=== PATIENT | female | born 1935 | race Caucasian/White ===

== ENCOUNTER 2017-01-08 22:37 | Inpatient (IN) | payer OTHER, MEDICARE ==
[~2017-01-08] VITALS: Ht 160 cm; Wt 86.2 kg
[~2017-01-08 22:37] MED LIST: AZIL80TA PO; LEVO50TA77 PO; LISI-600 PO; METO-442 PO; OMEP20CA10 PO; POTA10TA80 PO; TRIA1CAP53 PO
[2017-01-08 22:42] VITALS: BP_SYST 160
--- NOTE | 2017-01-08 22:45 | NUR ---
Pt placed to ER waiting room in stable condition.
--- NOTE | 2017-01-08 23:05 | NUR ---
Patient to ER bed 1 to gown for evaluation. Side rails up. Report given to Faith BURNS.
--- NOTE | 2017-01-08 23:15 | NUR ---
Pt A&OX4, family at bedside. Pt complaining of left and right upper abdominal pain that began today, pain is 8/10 sharp and constant. Pt states she has had gas and diarrhea for past 3-4 days with some nausea. Denies any vomiting/SOB. No other signs of acute distress noted. Will continue to monitor.
[2017-01-08 23:48] LABS: BILIRUBIN,URINE NEGATIVE (NEGATIVE); BLOOD, URINE 1+ (NEGATIVE); CLARITY/URINE CLEAR (CLEAR); COLOR,URINE YELLOW (YELLOW); GLUCOSE,URINE NEGATIVE (NEGATIVE); KETONES,URINE NEGATIVE (NEGATIVE); LEUKOCYTE ESTERASE ,URINE NEGATIVE (NEGATIVE); NITRITE, URINE NEGATIVE (NEGATIVE); PH,URINE 5.5 (5.0-8.0); PROTEIN URINE NEGATIVE (NEGATIVE); UROBILINOGEN,URINE 0.2 (0.2-1.0)
[2017-01-08 23:50] LABS: ANION GAP 8 (5-15); CHLORIDE 101 mmol/L (98-107); CREATININE 0.98 mg/dL (0.55-1.30); GLUCOSE 121 mg/dL (70-99); POTASSIUM 4.1 mmol/L (3.5-5.1); SODIUM SERUM 134 mmol/L (136-145); UREA NITROGEN, BLOOD 33 mg/dL (8-21)
[2017-01-08 23:54] LABS: BASOPHILS % (AUTO) 0.2 % (0.0-2.0); EOSINOPHILS # (AUTO) 0.1 K/uL (0.0-0.4); EOSINOPHILS % (AUTO) 0.4 % (0.0-4.0); HEMATOCRIT 36.9 % (36-48); HEMOGLOBIN 12.6 g/dL (12.0-16.0); LYMPHOCYTES # (AUTO) 0.8 K/uL (1.0-5.5); LYMPHOCYTES % (AUTO) 6.2 % (20.5-51.5); MEAN CORPUSCULAR HEMOGLOBIN 32 pg (27-31); MEAN CORPUSCULAR HGB CONC 34 % (32-36); MEAN CORPUSCULAR VOLUME 95 fL (79.0-98.0); MONOCYTES # (AUTO) 0.8 K/uL (0.0-1.0); MONOCYTES % (AUTO) 6.3 % (1.7-9.3); NEUTROPHILS # (AUTO) 11.7 K/uL (1.8-7.7); NEUTROPHILS % (AUTO) 86.9 % (40.0-70.0); PLATELET COUNT (AUTO) 284 K/uL (130-430); RED CELL DISTRIBUTION WIDTH 12.3 % (9.0-15.0); WHITE BLOOD COUNT (AUTO) 13.4 K/uL (4.8-10.8)
[2017-01-08 23:55] LABS: ALANINE AMINOTRANSFERASE 22 U/L (12-78); ALBUMIN 3.8 g/dL (3.4-4.8); ASPARTATE AMINOTRANSFERASE 17 U/L (10-37); LIPASE 77 U/L (73-393); TOTAL BILIRUBIN 0.5 mg/dL (0.0-1.0); TOTAL PROTEIN, SERUM 7.7 g/dL (6.4-8.3)
[2017-01-09 00:26] LABS: BACTERIA,URINE FEW /HPF (None Seen); RBC,URINE 0-3 /HPF (0-3); WBC,URINE 0-3 /HPF (0-3)
[2017-01-09 00:27] LABS: MUCUS,URINE None Seen /LPF (None Seen)
[2017-01-09] MEDS ORDERED: NACL 0.9% 1,000 ML IV ONE (00:28)
[2017-01-09] MEDS ORDERED: DIPHENHYDRAMINE INJ 50 MG/ML VIAL IVP ONE (00:30)
[2017-01-09] MEDS ORDERED: HYDROmorphone 1 MG INJ. 1 MG/ML AMPUL IVP ONE (00:30)
--- NOTE | 2017-01-09 00:30 | NUR ---
ER MD Ibarra at bedside examining patient.
--- NOTE | 2017-01-09 02:16 | NUR ---
Medication reconciliation completed with information provided by - verbal from patient. Any prior medication reconciliation on file was reviewed and corrected.
[2017-01-09] MEDS ORDERED: ONDANSETRON HCL 4 MG/2 ML VIAL IVP PRN ×2 (02:30→10:15)
[2017-01-09] MEDS ORDERED: HYDROmorphone 1 MG INJ. 1 MG/ML AMPUL IVP PRN ×3 (02:30→10:15)
--- NOTE | 2017-01-09 03:09 | NUR ---
ADMISSION NOTE Received patient from ER via gurney. Patient admitted with diagnosis of A. Appendicitis. Patient is awake, alert, oriented X 4. Patient oriented to hospital room, call light, toileting, pain management and safety-teach back done. Patient informed that Roberto will be his nurse and that their room number is 122B. Personal belongings checked and Belongings List documented. Call light within reach.
--- NOTE | 2017-01-09 03:09 | NUR ---
Patient will be admitted to care of Dr. Renner. Admitted to Medical Surgical unit. Will go to room 122 A. Belongings list completed. Summary report printed. Report will be given at bedside.
[2017-01-09 03:10] VITALS: BP_SYST 120
--- NOTE | 2017-01-09 03:32 | NUR ---
Surgery Consultation Paged Reason for consultation: Acute Appendicitis Was consult called: Yes Person who was notified: Inez Consulting Physician: Dr Mclain Studio Coordinator Specialty: Interior Painter Ordered By: Dr Renner
[2017-01-09] MEDS ORDERED: PIPERACILLIN/TAZOBACTAM 3.375 GM/VIAL (ZOSYN) IV ONE (04:22)
[2017-01-09] MEDS: PIPERACILLIN/TAZO 3.375/DEX-IS 50 ML IV SCH ×3 (05:27→19:28)
[2017-01-09] MEDS: D5NS 1,000 ML IV SCH ×2 (05:28→16:54)
--- NOTE | 2017-01-09 06:52 | NUR ---
Final Rounds Patient is resting in bed at this time with at bedside. No s/s of pain or any distress noted. Educated patient for possible appendectomy today and verbalized understanding. All needs met and anticipated by staff. Bed in low position with call light in reach, will endorse.
--- NOTE | 2017-01-09 08:00 | NUR ---
OPENING NOTE/DR LUA AT BEDSIDE PT PRESENTED WITH ACUTE APPENDICITIS AND IS SCHEDULED FOR A LAP VS OPEN APPENDECTOMY TODAY AT 0930. . VS STABLE ON ROOM AIR, PAIN AT LLQ 12/12. LUNG SOUNDS CLEAR, BOWEL SOUNDS MILDLY HYPOACTIVE IN ALL FOUR QUAD[address]S. DR. LUA EXPLAINED RISKS AND BENEFITS OF SX TO PT AT BEDSIDE AND ANSWERED ALL OF HER QUESTIONS REGARDING THE PROCEDURE. FAMILY AT BEDSIDE, EDUCATION PROVIDED ON PRE-OP PROCEDURES Addendum: 01/09/17 at 1026 by Ramon Busch RN MISTAKEN ENTRY: PAIN AT RLQ, NOT LLQ
[2017-01-09] MEDS ORDERED: HYDROmorphone 1 MG INJ. 1 MG/ML AMPUL IM PRN (08:15)
[2017-01-09] MEDS ORDERED: ROCURONIUM BROMIDE 10 MG/ML (ZEMURON) IV ONE (09:09)
[2017-01-09] MEDS ORDERED: SEVOFLURANE 15 MIN GAS INH ONE (09:09)
[2017-01-09] MEDS ORDERED: GLYCOPYRROLATE 0.2 MG/ML VIAL IJ ONE (09:09)
[2017-01-09] MEDS ORDERED: ONDANSETRON HCL 4 MG/2 ML VIAL IVP ONE (09:09)
[2017-01-09] MEDS ORDERED: NEOSTIGMINE METHYLSULFATE 1 MG/ML, 10 ML VIAL IVP ONE (09:09)
[2017-01-09] MEDS ORDERED: fentaNYL CITRATE/PF 100 MCG/2 ML AMP IVP ONE (09:09)
[2017-01-09] MEDS ORDERED: MIDAZOLAM HCL 5 MG/5 ML VIAL IVP ONE (09:09)
[2017-01-09] MEDS ORDERED: NS 1000 ML BAG IV ONE (09:09)
[2017-01-09 09:18] LABS: PROTHROMBIN TIME 10.8 SECS (9.5-12.5)
--- NOTE | 2017-01-09 09:30 | NUR ---
PT TRANSPORTED TO S ALL CONSENTS SIGNED, PT WITH FAMILY
[2017-01-09] MEDS ORDERED: LR 1,000 ML IV SCH (10:14)
[2017-01-09] MEDS ORDERED: MEPERIDINE HCL/PF 25 MG/ML DISP.SYRIN IVP PRN ×2 (10:15)
[2017-01-09 11:45] VITALS: BP_SYST 115
--- NOTE | 2017-01-09 11:45 | NUR ---
PT RETURNED TO SX (Room 123-A) PT RETURNED TO ROOM ALERT BUT DROWSY, VS STABLE AND SPO2 97% AT 3L NC. I PLAN TO TITRATE THE O2 DOWN TOLERATED SHE RECOVERS. VS: 97.8, 115/57, 71 HR, 15RR, 97% 3L NC, PAIN 0/10 FAMILY AT BEDSIDE AND EDUCATED ON POST-OP PLAN OF CARE
--- NOTE | 2017-01-09 13:30 | NUR ---
ROUNDS PT RESTING IN BED AND APPEARS TO SLEEPING. VS STABLE WITH NO S/S OF DISTRESS.
--- NOTE | 2017-01-09 15:08 | NUR ---
ROUNDS PT IS RESTING IN BED, TALKING WITH HER FAMILY MEMBERS WHO ARE AT BEDSIDE. PT SPO2 WAS 98% ON 2L O2, SO I LOWERED IT TO 1L AND SHE REMAINED AT 94%.
--- NOTE | 2017-01-09 15:40 | NUR ---
PT EDUCATION PT EDUCATED ON USE OF INCENTIVE SPIROMETER, DISPLAYED ABILITY TO PROPERLY USE INSTRUMENT. IS AT BEDSIDE.
[2017-01-09 16:58] VITALS: BP_SYST 109
--- NOTE | 2017-01-09 17:00 | NUR ---
ROUNDS PT SITTING UP IN BED, TALKING WITH HER WHO IS AT BEDSIDE. I ASSISTED HER TO THE BATHROOM AND SHE WAS RELATIVELY STEADY WITH NO COMPLAINTS OF PAIN OR SOB. I HELPED HER RETURN TO BED AND REPOSITIONED HER FOR COMFORT.
--- NOTE | 2017-01-09 19:00 | NUR ---
CLOSING NOTE PT IS SITTING UP IN BED WATCHING TV WITH NO COMPLAINT OF DISCOMFORT. PT IS STABLE ON ROOM AIR, A/O X 4, AND IS IN GOOD SPIRITS. SHE IS EXCITED TO GO HOME TOMORROW THOUGH I EDUCATED HER ON THE IMPORTANCE OF WAITING UNTIL BOTH DR. GASPAR WELL DR. LUA CLEAR HER FOR DC.
[2017-01-09 20:59] VITALS: BP_SYST 102
--- NOTE | 2017-01-09 21:04 | NUR ---
Initial note A/O x 3, no SOB, no chest pain, c/o mild discomfort at ABD (post-op/surgical pain). Skin warm to touch, 3 dressings at abd, no oozing. Clear lung sounds and active bowel sounds. Patient is able to inhale 500-750 ml via incentive spirometer (IS). Educated patient to practice IS 10 times/hr via IS to prevent lung closure. Also instructed patient to practice deep breathing. SCD in place. call light within reach, bed at lowest position, bed alarm on, will continue to monitor patient.
--- NOTE | 2017-01-09 21:30 | NUR ---
IV reinsertion. IV at R FA infiltrated. Started a new IV at L hand #24 x 5 attempts. Resumed IVF, DC old IV, IV catheter intact. Patient tolerated well.
--- NOTE | 2017-01-09 22:22 | NUR ---
Rounds Watching TV in bed. No SOB, no chest pain, denied pain. Reminded patient to practice deep breathing. Call light within reach, bed at lowest position, bed alarm on, will continue to monitor patient.
[2017-01-09 23:22] VITALS: BP_SYST 102
--- NOTE | 2017-01-10 00:26 | NUR ---
Rounds Resting/sleeping in bed. Easy to awake. No SOB, no chest pain, denied pain. IVF ongoing. Call light within reach, bed at lowest position, bed alarm on, will continue to monitor patient.
[2017-01-10] MEDS: PIPERACILLIN/TAZO 3.375/DEX-IS 50 ML IV SCH ×5 (01:04→23:58)
--- NOTE | 2017-01-10 02:09 | NUR ---
Rounds Sleeping in bed, no SOB, no chest pain, no grimacing. Call light within reach, bed at lowest position, bed alarm on, will continue to monitor patient.
[2017-01-10 03:55] VITALS: BP_SYST 109
--- NOTE | 2017-01-10 04:02 | NUR ---
Rounds Patient is awake and asking how to use incentive spirometer (IS). Re-educated patient how to use and patient is able to inhale about 500-750 ml. Then patient wanted to sleep. Call light within reach, bed at lowest position, bed alarm on, will continue to monitor patient.
--- NOTE | 2017-01-10 06:02 | NUR ---
Rounds Resting/sleeping in bed, easy to awake. Zosyn IV infusing. Patient denied any discomfort. About 350 ml left in the IVF bag. Skin warm to touch, IV patent. Call light within reach, bed at lowest position, bed alarm on, will continue to monitor patient.
--- NOTE | 2017-01-10 06:40 | NUR ---
Closing note Resting/sleeping in bed. No SOB, no chest pain, no grimacing. IVF ongoing. Call light within reach, bed at lowest position, bed alarm on, will give report to incoming nurse.
[2017-01-10 06:50] LABS: BASOPHILS % (AUTO) 0.3 % (0.0-2.0); EOSINOPHILS # (AUTO) 0.1 K/uL (0.0-0.4); EOSINOPHILS % (AUTO) 0.7 % (0.0-4.0); HEMATOCRIT 32.6 % (36-48); HEMOGLOBIN 11.1 g/dL (12.0-16.0); LYMPHOCYTES # (AUTO) 1.1 K/uL (1.0-5.5); LYMPHOCYTES % (AUTO) 7.7 % (20.5-51.5); MEAN CORPUSCULAR HEMOGLOBIN 33 pg (27-31); MEAN CORPUSCULAR HGB CONC 34 % (32-36); MEAN CORPUSCULAR VOLUME 96 fL (79.0-98.0); MONOCYTES % (AUTO) 6.9 % (1.7-9.3); NEUTROPHILS # (AUTO) 11.8 K/uL (1.8-7.7); NEUTROPHILS % (AUTO) 84.4 % (40.0-70.0); PLATELET COUNT (AUTO) 246 K/uL (130-430); RED BLOOD CELL COUNT(AUTO) 3.39 MIL/uL (4.2-6.2); RED CELL DISTRIBUTION WIDTH 12.3 % (9.0-15.0)
[2017-01-10 07:16] LABS: ALANINE AMINOTRANSFERASE 17 U/L (12-78); ALBUMIN 2.8 g/dL (3.4-4.8); ANION GAP 7 (5-15); ASPARTATE AMINOTRANSFERASE 15 U/L (10-37); CALCIUM 8.2 mg/dL (8.4-11.0); CHLORIDE 107 mmol/L (98-107); CREATININE 0.96 mg/dL (0.55-1.30); GLUCOSE 116 mg/dL (70-99); POTASSIUM 3.6 mmol/L (3.5-5.1); SODIUM SERUM 140 mmol/L (136-145); TOTAL BILIRUBIN 0.5 mg/dL (0.0-1.0); TOTAL PROTEIN, SERUM 6.4 g/dL (6.4-8.3); UREA NITROGEN, BLOOD 23 mg/dL (8-21)
--- NOTE | 2017-01-10 07:43 | NUR ---
Initial notes: Patient on bed resting. Stable. Discussed plan. Safety measures in placed. Call light within reach.
--- NOTE | 2017-01-10 08:36 | NUR ---
PAGED DR LUA [phone], S/W [place].
--- NOTE | 2017-01-10 10:30 | NUR ---
Walk: patient able to walk in the hallway with assist. no distress noted.
--- NOTE | 2017-01-10 10:49 | NUR ---
PAGED DR GASPAR [phone], Dr Gaspar answered.
[2017-01-10] MEDS ORDERED: LEVOTHYROXINE SODIUM 0.05 MG TABLET PO ONE (11:00)
[2017-01-10 12:03] VITALS: BP_SYST 125
[2017-01-10] MEDS: D5NS 1,000 ML IV SCH ×2 (12:09→23:58)
--- NOTE | 2017-01-10 13:00 | NUR ---
IV RE-INSERTION: Complaining of pain to IV site. Restarted on 01/10/15. Successful after attempts. Will observe for any signs of infiltration.
--- NOTE | 2017-01-10 15:40 | NUR ---
rounds: patient ambulatory. able to brush her teeth standing at the sink. no distress noted.
[2017-01-10 16:03] VITALS: BP_SYST 121
--- NOTE | 2017-01-10 16:58 | NUR ---
rounds: patient on bed resting. no distress noted.
--- NOTE | 2017-01-10 18:24 | NUR ---
rounds: patient sitting on the chair, assisted to the toilet and went back to bed. position for comfort.
--- NOTE | 2017-01-10 18:52 | NUR ---
Closing notes: Patient sitting on the chair. Stable. Needs attended. Call light within reach. Repot will be given to ferryboat deckhand.
--- NOTE | 2017-01-10 19:20 | NUR ---
OPENING NOTES RECEIVED REPORT AT BEDSIDE. PATIENT AOX4, SITTING UP IN BED WATCHING TELEVISION. RESPIRATIONS ARE EVEN WITH EXPIRATORY WHEEZE. LUNGS ARE CLEAR. ABDOMEN SOFT. IV PATENT AND INFUSING WITH NO SIGNS OF INFILTRATION. PT. DENIES PAIN. FALL PRECAUTIONS IN PLACE. CALL LIGHT WITHIN REACH. WILL CONTINUE TO MONITOR.
[2017-01-10 20:25] VITALS: BP_SYST 134
--- NOTE | 2017-01-10 20:31 | NUR ---
INCENTIVE SPIROMETER EDUCATED PATIENT ON INCENTIVE SPIROMETER, PATIENT VERBALIZED AND DEMONSTRATED UNDERSTANDING. PATIENT COMPLETED 10 ROUNDS AT 500.
--- NOTE | 2017-01-10 22:00 | NUR ---
RN ROUNDS PATIENT IS SLEEPING COMFORTABLY. NO S/S OF ACUTE DISTRESS NOTED. VISIBLE RISE AND FALL OF CHEST NOTED. WHEEZING ON EXPIRATION. FALL PRECAUTIONS IN PLACE.
--- NOTE | 2017-01-11 00:11 | NUR ---
RN ROUNDS PATIENT ASSISTED TO BATHROOM. EXPIRATORY WHEEZE UPON EXERTION IS PRONOUNCED. WILL PAGE DR. GASPAR. RESPIRATIONS ARE 22, OXYGEN SATURATION IS 95%.
[2017-01-11 00:13] VITALS: BP_SYST 136
--- NOTE | 2017-01-11 00:18 | NUR ---
paged paged for Dr Renner, dialed . picked-up call.
[2017-01-11] MEDS ORDERED: IPRATROPIUM/ALBUTEROL SULFATE 3 ML AMPUL.NEB INH PRN (00:30)
--- NOTE | 2017-01-11 01:45 | NUR ---
RN ROUNDS PATIENT IS SLEEPING COMFORTABLY. NO S/S OF ACUTE DISTRESS NOTED. VISIBLE RISE AND FALL OF CHEST NOTED. WHEEZING ON EXPIRATION. FALL PRECAUTIONS IN PLACE.
--- NOTE | 2017-01-11 03:45 | NUR ---
RN ROUNDS PATIENT IS SLEEPING COMFORTABLY. NO S/S OF ACUTE DISTRESS NOTED. VISIBLE RISE AND FALL OF CHEST NOTED. WHEEZING ON EXPIRATION. FALL PRECAUTIONS IN PLACE. WILL CONTINUE TO MONITOR.
[2017-01-11 04:22] VITALS: BP_SYST 123
[2017-01-11] MEDS: PIPERACILLIN/TAZO 3.375/DEX-IS 50 ML IV SCH ×2 (05:05→11:41)
--- NOTE | 2017-01-11 05:45 | NUR ---
RN ROUNDS NO CHANGE IN CONDITION.
[2017-01-11 06:35] LABS: ANION GAP 4 (5-15); CALCIUM 8.1 mg/dL (8.4-11.0); CHLORIDE 111 mmol/L (98-107); CREATININE 1.04 mg/dL (0.55-1.30); GLUCOSE 93 mg/dL (70-99); POTASSIUM 3.6 mmol/L (3.5-5.1); SODIUM SERUM 142 mmol/L (136-145); UREA NITROGEN, BLOOD 20 mg/dL (8-21)
[2017-01-11 06:55] LABS: BASOPHILS % (AUTO) 0.4 % (0.0-2.0); EOSINOPHILS # (AUTO) 0.4 K/uL (0.0-0.4); EOSINOPHILS % (AUTO) 3.9 % (0.0-4.0); HEMATOCRIT 31.6 % (36-48); HEMOGLOBIN 10.6 g/dL (12.0-16.0); LYMPHOCYTES # (AUTO) 1.6 K/uL (1.0-5.5); LYMPHOCYTES % (AUTO) 15.9 % (20.5-51.5); MEAN CORPUSCULAR HEMOGLOBIN 32 pg (27-31); MEAN CORPUSCULAR HGB CONC 33 % (32-36); MEAN CORPUSCULAR VOLUME 96 fL (79.0-98.0); MONOCYTES # (AUTO) 0.8 K/uL (0.0-1.0); MONOCYTES % (AUTO) 8.1 % (1.7-9.3); NEUTROPHILS # (AUTO) 7.5 K/uL (1.8-7.7); NEUTROPHILS % (AUTO) 71.7 % (40.0-70.0); PLATELET COUNT (AUTO) 289 K/uL (130-430); RED BLOOD CELL COUNT(AUTO) 3.28 MIL/uL (4.2-6.2); RED CELL DISTRIBUTION WIDTH 12.6 % (9.0-15.0)
[2017-01-11] MEDS ORDERED: LEVOTHYROXINE SODIUM 0.05 MG TABLET PO SCH (07:00)
[2017-01-11 07:40] VITALS: BP_SYST 155
--- NOTE | 2017-01-11 07:41 | NUR ---
INITIAL NOTE Pt in bed, no s/s of distress or sob, pt has no c/o pain at this time. Pt in stable condition. Pt aaox4, verbal, iv catheter patent, no signs of infection or infiltration noted. Educated pt on use of incentive spirometer, pt to use 10 times an hour while awake, pt verbalized understanding, pt at 500ml. Bed at lowest position, call light within reach, will continue to monitor pt for any changes, fall precaution in place.
[2017-01-11 07:53] LABS: WHITE BLOOD COUNT (AUTO) 10.3 K/uL (4.8-10.8)
[2017-01-11] MEDS: POTASSIUM CHLORIDE 10 MEQ TAB.PRT.SR PO SCH ×2 (08:30→08:34)
[2017-01-11] MEDS ORDERED: HYDR-1189 PO (08:59)
[2017-01-11] MEDS ORDERED: TRIAMTERENE/HYDROCHLOROTHIAZID 1 CAP CAPSULE (DYAZIDE37.5/25) PO SCH (09:00)
--- NOTE | 2017-01-11 09:32 | NUR ---
DISCHARGE PLANNING DC order to arrange home health. Faxed home health referral to [phone]. Will follow up. Addendum: 01/11/17 at 1138 by Sylvia Mckeon DP spoke with Shayy in intake dept at [facility] case approved and will have home health nurse call patient/family to make visit arrangements. KATY Loco made aware.
--- NOTE | 2017-01-11 10:20 | NUR ---
ROUNDS Pt in bed, no s/s of distress or sob noted, pt has no c/o pain at this time, pt in stable condition, pt resting comfortably, will continue to monitor pt for any changes. Pt watching tv.
[2017-01-11] MEDS: D5NS 1,000 ML IV SCH (11:42)
--- NOTE | 2017-01-11 12:00 | NUR ---
MD CALL Spoke with Dr Renner in regards to c/o of diarrhea per pt, per md it is chronic diarrhea and she needs to see a GI as an outpatient due to being diagnosed with diverticulitis. Aware of patients high b/p and gave new orders, no need for stool culture or c diff as per md.
[2017-01-11] MEDS ORDERED: cloNIDine HCL 0.1 MG TABLET PO ONE (12:15)
[2017-01-11 12:29] VITALS: BP_SYST 170
--- NOTE | 2017-01-11 13:35 | NUR ---
JIAN SCALE EVALUATION: Patient evaluated for a low Jian score of 16. Patient was awake, alert, oriented and received in a Kathia bed with an IsoFlex SAM mattress. Patient is able to turn in bed independently. Skin is fair; Lower abdomen has three clean, dry and intact dressings from a Laparoscopic Appendectomy. Recommend encourage and assist patient as needed with repositioning every 2 hours with pillow support. Offload pressure areas with pillows for pressure re-distribution. Perform skin care and monitor skin integrity Q shift. Use moisture barrier cream on moisture susceptible areas QID and PRN for soiling.
--- NOTE | 2017-01-11 13:40 | NUR ---
Medication Reassessment Patients blood pressure is now 106/60, pulse 70, pt asymptomatic, no c/o headache or dizziness.
--- NOTE | 2017-01-11 14:23 | NUR ---
Nutrition Update Jian Scale 16 noted. Pt admitted for Acute appendicitis. Diet: Regular diet. BMI: 33.7 kg/m2 RD to follow per nutrition care standards.
--- NOTE | 2017-01-11 14:30 | NUR ---
ROUNDS Pt in bed, no s/s of distress or sob noted, pt has no c/o pain at this time, pt in stable condition, pt resting comfortably, will continue to monitor pt for any changes. Pt talking to at bedside.
[2017-01-11 14:57] VITALS: BP_SYST 108
--- NOTE | 2017-01-11 15:00 | NUR ---
ROUNDS Dr Chemo acuna, aware of patients condition, per md pt can go home and follow up within a week.
--- NOTE | 2017-01-11 15:30 | NUR ---
D/C Patient Patient given medication reconciliation form and D/C instructions. Exit Care provided. Patient verbalized understanding. discussed with patient the results and treatment provided. Ambulatory with steady gait for discharge to home. Patient in stable condition, ID band removed. IV catheter removed, intact and dressing applied, no active bleeding. Rx of norco given. Patient educated on pain management. All belongings sent with patient. Addendum: 01/11/17 at 1554 by Beronica Reinoso RN discussed with pt that [facility] will be contacting her to set up home health visits, pt verbalized understanding. Addendum: 01/11/17 at 1554 by Beronica Reinoso RN [phone]
--- NOTE | 2017-01-13 13:35 | NUR ---
Discharge Follow Up Phone Call: BIOINFORMATICS DEVELOPER placed call to pt ([phone]); pt states that she is doing well. Pt had a ED visit on 01/11/17 after she was discharged; pt states that she is feeling somewhat better. Pt states that [facility] nurse did visit yesterday, 01/12/17; pt states that she is waiting to hear from the physical therapist. BIOINFORMATICS DEVELOPER placed a call to [facility] ([phone]) and spoke to Cathleen who states that she will contact the physical therapist to remind them to make an appointment to see the pt. Pt states that she has an appointment with her PCP on 01/14/17 and that she has an appointment with Dr. Mclain on 01/18/17. Pt states that she was able to fill her prescriptions. Pt has no other concerns/needs; at this time no further follow up calls will be made.
== END 2017-01-11 15:30 | disposition home health service (06) | DRG 854 ==
LOC: SED 22:37 → SMU 01-09 02:18
PROVIDERS: ADMIT General Practice; ATTEND General Practice
PROC: 0DTJ4ZZ Resection of Appendix, Percutaneous Endoscopic Approach (ICD-10-PCS; principal; 2017-01-09 09:00)
DX: A41.9 Sepsis, unspecified organism (principal); K35.80 Unspecified acute appendicitis; E44.0 Moderate protein-calorie malnutrition; K57.90 Diverticulosis of intestine, part unspecified, without perforation or abscess without bleeding; I10 Essential (primary) hypertension; K21.9 Gastro-esophageal reflux disease without esophagitis; K52.9 Noninfective gastroenteritis and colitis, unspecified; Z88.6 Allergy status to analgesic agent; Z79.899 Other long term (current) drug therapy; Z90.11 Acquired absence of right breast and nipple
CPT/HCPCS: 36415; 71010; 80048; 80053; 81000-TC; 83605; 83690-TC; 83735-TC; 85025; 85610-TC; 85730-TC; 86886; 86900; 86901; 87040-TC; 88304; 93005; 94010; 94640; 96361; 96374; 96375; 99285; C1727; J1170; J1200; J2250; J2405; J2543; J2710; J3010; J3490; J7030; J7040; J7042